=== PATIENT | female | born 1970 | race African-American/Black ===

== ENCOUNTER 2019-12-29 01:27 | Emergency (ER) | payer MEDICAID ==
[~2019-12-29] VITALS: Ht 162.6 cm; Wt 56.7 kg
[2019-12-29 01:45] VITALS: BP 150/86
[2019-12-29] MEDS: Albuterol ud Inhalation HHN ONE ×2 (01:54→02:02)
--- NOTE | 2019-12-29 01:55 | NUR ---
ED Nurse Note: Patient walked in to ER c/o cough, congestion x 3 days. Patient is running fever 102.2 at bed side. Patient AAO x4, otjer VSS at this time.
[2019-12-29] MEDS ORDERED: IBUPROFEN600 MG ORAL (01:59)
[2019-12-29] MEDS ORDERED: LEVAQUIN500 MG ORAL (01:59)
[2019-12-29] MEDS ORDERED: PREDNISONE20 MG ORAL (01:59)
[2019-12-29] MEDS ORDERED: ALBUTEROL SULF8.5 GM INH (01:59)
[2019-12-29] MEDS ORDERED: TESSALON PERLE100 MG ORAL (01:59)
[2019-12-29] MEDS ORDERED: Levofloxacin 500mg tab ORAL ONE (02:00)
--- NOTE | 2019-12-29 02:00 | Emergency Room Report ---
History of Present Illness General Chief Complaint: Upper Respiratory Illness Source: Patient Present Illness HPI Is a 49-year-old female who is a smoker. She presents with complaint of cough and congestion. Onset for last few days. No nausea no vomiting. Also with headache. Denies any fever chills. Coughing is nonproductive nature. Worse with inspiration. Also with chest tightness because of it. She is currently on antibiotics for dental infection. Allergies: Coded Allergies: ERYTHROMYCIN BASE (Verified Allergy, Unknown, 12/29/19) Patient History Past Medical History: see triage record, old chart reviewed Past Surgical History: none Pertinent Family History: none Social History: Reports: smoking Now: No Immunizations: other Reviewed Nursing Documentation: PMH: Agreed; PSxH: Agreed Nursing Documentation-PMH Past Medical History: No Stated History Review of Systems Eye: Denies: eye pain, blurred vision ENT: Denies: ear pain, nose congestion, throat swelling Respiratory: Reports: cough, shortness of breath Cardiovascular: Denies: chest pain, palpitations Gastrointestinal: Denies: abdominal pain, diarrhea, nausea, vomiting Musculoskeletal: Denies: back pain, joint pain Skin: Denies: rash Neurological: Reports: headache; Denies: numbness Endocrine: Denies: increased thirst, increased urine Hematologic/Lymphatic: Denies: easy bruising All Other Systems: negative except mentioned in HPI Physical Exam Vital Signs Date Time Temp Pulse Resp B/P (MAP) Pulse Ox O2 Delivery O2 Flow Rate FiO2 12/29/19 01:33 102.6 100 22 150/86 (107) 95 Room Air Vitals with fever Sp02 EP Interpretation: reviewed, normal General Appearance: well appearing, no apparent distress, alert Head: normocephalic, atraumatic Eyes: bilateral eye PERRL, bilateral eye EOMI ENT: hearing grossly normal, normal pharynx Neck: full range of motion, supple, no meningismus Respiratory: chest non-tender, decreased breath sounds, accessory muscle use Cardiovascular #1: regular rate, rhythm, no murmur Gastrointestinal: normal bowel sounds, non tender, no mass, no organomegaly, no bruit, non-distended Musculoskeletal: back normal, normal range of motion, gait/station normal Psychiatric: mood/affect normal Medical Decision Making Diagnostic Impression: Primary Impression: Community acquired pneumonia Qualified Codes: J18.9 - Pneumonia, unspecified organism ER Course Patient presents with coughing. She has a fever. Will switch antibiotics. Better after breathing treatment. No evidence of ACS, PE, dissection to name a few. Last Vital Signs Date Time Temp Pulse Resp B/P (MAP) Pulse Ox O2 Delivery O2 Flow Rate FiO2 12/29/19 01:45 100 22 Room Air 12/29/19 01:45 102.6 150/86 95 Status: improved Disposition: HOME, SELF-CARE Condition: Stable Scripts Prednisone* (PREDNISONE*) 20 Mg Tablet 40 MG ORAL DAILY, #8 TAB Prov: Mihai Khoury MD 12/29/19 Levofloxacin* (LEVAQUIN*) 500 Mg Tablet 500 MG ORAL DAILY, #6 TAB Prov: Mihai Khoury MD 12/29/19 Benzonatate* (TESSALON PERLE*) 100 Mg Capsule 100 MG ORAL THREE TIMES A DAY, #30 PERLE Prov: Mihai Khoury MD 12/29/19 Ibuprofen* (MOTRIN*) 600 Mg Tablet 600 MG ORAL THREE TIMES A DAY, #30 TAB 0 Refills Prov: Mihai Khoury MD 12/29/19 Albuterol Sulfate* (ALBUTEROL SULFATE MDI*) 8.5 Gm Hfa.aer.ad 2 PUFF INH Q4H PRN for cough/wheezing, #1 EA 0 Refills Prov: Mihai Khoury MD 12/29/19 Additional Instructions: Follow up with your doctor in 7 days. Return if symptoms worsen. Mihai Khoury MD Dec 29, 2019 02:00
[2019-12-29 02:14] VITALS: BP 150/86
--- NOTE | 2019-12-29 02:14 | NUR ---
ED Nurse Note: Pt cleared by health care Provider for discharge. DC instructions/prescription was given and explained to pt and verbalized understanding of teachings. All medical deviecs such as ID band removed. Pt is AAO x4, ambulatory and left with all personal belongings.
== END 2019-12-29 02:10 | disposition home or self-care (01) ==
LOC: EMR 02:03
DX: J18.9 Pneumonia, unspecified organism (principal); K04.7 Periapical abscess without sinus; F17.200 Nicotine dependence, unspecified, uncomplicated; Z88.1 Allergy status to other antibiotic agents
CPT/HCPCS: J7512; Z7502; 99284

== ENCOUNTER 2020-04-04 09:54 | Emergency (ER) | payer MEDICAID, OTHER ==
[~2020-04-04] VITALS: Ht 165.1 cm; Wt 54.4 kg
[~2020-04-04 09:54] MED LIST: ALBUTEROL SULF8.5 GM INH; IBUPROFEN600 MG ORAL; LEVAQUIN500 MG ORAL; PREDNISONE20 MG ORAL; TESSALON PERLE100 MG ORAL
[2020-04-04] MEDS ORDERED: LORazepam Inj 2mg/ml 1ml ONE (09:59)
[2020-04-04] MEDS ORDERED: LORazepam Inj 2mg/ml 1ml IM ONE (10:00)
--- NOTE | 2020-04-04 10:10 | Emergency Room Report ---
History of Present Illness General Chief Complaint: Overdose Source: EMS Present Illness HPI Disclaimer: Please note that this report is being documented using DRAGON technology. This can lead to erroneous entry secondary to incorrect interpretation by the dictating instrument. HPI: 49-year-old female presents from the street due to complaints of possible overdose. Patient admitted to smoking crack cocaine approximately 1 hour prior to the ER. On arrival patient was handcuffed to the [facility]. Police report that she was dancing in the streets. She does states she has a history of hypertension but does not take any medication at this time. She denies any medical complaints. PMH: Hypertension PSH: Reviewed Social Hx: Patient smokes crack cocaine, smokes cigarettes occasional alcohol use Allergies: Coded Allergies: ERYTHROMYCIN BASE (Verified Allergy, Unknown, 12/29/19) COVID-19 Screening Contact w/high risk pt: No Recent Travel to affected area: No Experienced COVID-19 symptoms?: No Nursing Documentation-PMH Hx Hypertension: Yes Review of Systems All Other Systems: negative except mentioned in HPI Physical Exam Vital Signs Date Time Temp Pulse Resp B/P (MAP) Pulse Ox O2 Delivery O2 Flow Rate FiO2 04/04/20 09:48 98.6 120 24 166/133 (144) 100 Room Air Sp02 EP Interpretation: reviewed, normal General Appearance: thin, other - mildly agitated Head: normocephalic, atraumatic Eyes: bilateral eye PERRL, bilateral eye EOMI ENT: hearing grossly normal, moist mucus membranes Neck: full range of motion, supple Respiratory: lungs clear, normal breath sounds, no rhonchi, no respiratory distress, no retraction, no wheezing Cardiovascular #1: normal peripheral pulses, no murmur, tachycardia Gastrointestinal: non tender, soft, non-distended, no guarding Neurologic: alert, oriented x3, no focal defects Psychiatric: other - Mildly agitated Skin: normal color, warm/dry Medical Decision Making ER Course MDM: Patient presented with mild agitation after smoking crack cocaine. Suspect drug-induced agitated delirium. Less likely infectious process. On exam patient was tachycardic so IV fluids ordered. Ativan ordered. Basic laboratory studies were ordered as well. Plan will be to observe patient in the ER until clinically sober. Clinical course-patient placed in a bed, cardiac monitoring, IV fluids given, Ativan given once. Surgery study showed no significant abnormalities, urine drug screen positive for cocaine and marijuana On reevaluation: Patient resting comfortably vital signs improved Plan-plan to discharge patient home with follow-up with PMD, instructions to avoid further illicit drug use, Laboratory Tests Test 04/04/20 10:40 04/04/20 11:35 White Blood Count 8.7 K/UL (4.8-10.8) Red Blood Count 4.27 M/UL (4.20-5.40) Hemoglobin 12.7 G/DL (12.0-16.0) Hematocrit 38.4 % (37.0-47.0) Mean Corpuscular Volume 90 FL (80-99) Mean Corpuscular Hemoglobin 29.8 PG (27.0-31.0) Mean Corpuscular Hemoglobin Concent 33.0 G/DL (32.0-36.0) Red Cell Distribution Width 13.2 % (11.6-14.8) Platelet Count 285 K/UL (150-450) Mean Platelet Volume 5.9 FL (6.5-10.1) L Neutrophils (%) (Auto) % (45.0-75.0) Lymphocytes (%) (Auto) % (20.0-45.0) Monocytes (%) (Auto) % (1.0-10.0) Eosinophils (%) (Auto) % (0.0-3.0) Basophils (%) (Auto) % (0.0-2.0) Differential Total Cells Counted 100 Neutrophils % (Manual) 75 % (45-75) Lymphocytes % (Manual) 23 % (20-45) Monocytes % (Manual) 2 % (1-10) Eosinophils % (Manual) 0 % (0-3) Basophils % (Manual) 0 % (0-2) Band Neutrophils 0 % (0-8) Platelet Estimate Adequate Platelet Morphology Normal Red Blood Cell Morphology Normal Sodium Level 144 MMOL/L (136-145) Potassium Level 3.5 MMOL/L (3.5-5.1) Chloride Level 105 MMOL/L (98-107) Carbon Dioxide Level 28 MMOL/L (21-32) Anion Gap 11 mmol/L (5-15) Blood Urea Nitrogen 12 mg/dL (7-18) Creatinine 0.9 MG/DL (0.55-1.30) Estimated Glomerular Filtration Rate > 60 mL/min (>60) Glucose Level 73 MG/DL (74-106) L Calcium Level 8.7 MG/DL (8.5-10.1) Total Bilirubin 0.3 MG/DL (0.2-1.0) Aspartate Amino Transferase (AST) 38 U/L (15-37) H Alanine Aminotransferase (ALT) 26 U/L (12-78) Alkaline Phosphatase 103 U/L (46-116) Total Protein 8.4 G/DL (6.4-8.2) H Albumin 4.3 G/DL (3.4-5.0) Globulin 4.1 g/dL Albumin/Globulin Ratio 1.0 (1.0-2.7) Serum Alcohol 229 mg/dL Urine Opiates Screen Negative (NEGATIVE) Urine Barbiturates Screen Negative (NEGATIVE) Phencyclidine (PCP) Screen Negative (NEGATIVE) Urine Amphetamines Screen Negative (NEGATIVE) Urine Benzodiazepines Screen Negative (NEGATIVE) Urine Cocaine Screen Positive (NEGATIVE) H Urine Marijuana (THC) Screen Positive (NEGATIVE) H Rhythm Strip Diag. Results EP Interpretation: yes Rate: 73 Rhythm: NSR, no ectopy Last Vital Signs Date Time Temp Pulse Resp B/P (MAP) Pulse Ox O2 Delivery O2 Flow Rate FiO2 04/04/20 09:48 98.6 120 24 166/133 (144) 100 Room Air Status: improved Disposition: HOME, SELF-CARE Condition: Improved Alex Bates M.D. April 04, 2020 10:10
[2020-04-04 11:14] VITALS: BP 160/105
[2020-04-04 11:15] LABS: HEMATOCRIT 38.4 % (37.0-47.0); HEMOGLOBIN 12.7 G/DL (12.0-16.0); MEAN CORPUSCULAR VOLUME 90 FL (80-99); PLATELET COUNT 285 K/UL (150-450); RED BLOOD COUNT 4.27 M/UL (4.20-5.40); RED CELL DISTRIBUTION WIDTH 13.2 % (11.6-14.8); WHITE BLOOD COUNT 8.7 K/UL (4.8-10.8)
[2020-04-04 11:53] LABS: ANION GAP 11 mmol/L (5-15); BLOOD UREA NITROGEN 12 mg/dL (7-18); CALCIUM 8.7 MG/DL (8.5-10.1); CARBON DIOXIDE 28 MMOL/L (21-32); CHLORIDE 105 MMOL/L (98-107); CREATININE 0.9 MG/DL (0.55-1.30); POTASSIUM 3.5 MMOL/L (3.5-5.1); SODIUM 144 MMOL/L (136-145)
[2020-04-04 11:58] LABS: ALANINE AMINOTRANSFERASE 26 U/L (12-78); ALBUMIN 4.3 G/DL (3.4-5.0); ALKALINE PHOSPHATASE 103 U/L (46-116); ASPARTATE AMINO TRANSFERASE 38 U/L (15-37); BILIRUBIN,TOTAL 0.3 MG/DL (0.2-1.0)
[2020-04-04 14:51] VITALS: BP 138/74
--- NOTE | 2020-04-04 15:36 | Diagnostic Imaging Report ---
Indication: Shortness of breath Technique: One view of the chest Comparison: none Findings: There are prominent bilateral basilar nipple shadows. The lungs and pleural spaces are clear. The heart size is normal. The aorta is slightly tortuous. Impression: No acute process
== END 2020-04-04 14:57 | disposition home or self-care (01) ==
LOC: EDBD 09:54 → EMR 10:20
DX: F14.921 Cocaine use, unspecified with intoxication delirium (principal); I10 Essential (primary) hypertension; Z88.1 Allergy status to other antibiotic agents
CPT/HCPCS: 36415; 71045; 80053; 80307; 85007; 85025; 96360; 96372; G0480; J7030; Z7502; 99284